=== PATIENT | male | born 1995 | race Caucasian/White ===

== ENCOUNTER 2020-07-13 13:28 | Emergency (ER) | payer SELFPAY ==
--- NOTE | 2020-07-13 13:34 | EDM.PDOC ---
ED HPI GENERAL MEDICAL PROBLEM - General Chief Complaint: General Stated Complaint: ELEVATED HEART RATE,TROUBLE BREATHING,POSSIBLE COV Time Seen by Provider: 07/13/20 13:29 Source of Information: Reports: Patient History Limitations: Reports: No Limitations - History of Present Illness INITIAL COMMENTS - FREE TEXT/NARRATIVE: HISTORY AND PHYSICAL: History of present illness: Patient is a 25-year-old male who presents to the emergency room with complaints of shortness of breath, cough and tachycardia. On 06/27/2020 he was diagnosed with COVID-19 and states he progressively started feeling better after 1 week. He recently has been off of quarantine and over the past 3 to 4 days states his symptoms are returning. When he is engaging in physical activity he feels like "my heart rate is [place] getting". He is concerned as his cough is returning and he does have some mild shortness of breath when active. Patient denies any fever, chills, headache, change in vision, syncope or near syncope. Denies any chest pain, back pain, abdominal pain, nausea, vomiting, diarrhea, constipation or dysuria. Has not noted any blood in urine or stool. Patient has been eating and drinking appropriately. Review of systems: As per history of present illness and below otherwise all systems reviewed and negative. Past medical history: As per history of present illness and as reviewed below otherwise noncontributory. Surgical history: As per history of present illness and as reviewed below otherwise noncontributory. Social history: See social history for further information Family history: As per history of present illness and as reviewed below otherwise noncontributory. Physical exam: General: Well developed and well nourished. Alert and orientated x 3. Nontoxic in appearance and in no acute distress. Vital signs are stable and have been reviewed by me. Nursing notes were reviewed. HEENT: Atraumatic, normocephalic, pupils equal and reactive bilaterally, nega tive for conjunctival pallor or scleral icterus, mucous membranes moist, TMs normal bilaterally, throat clear, neck supple, nontender, trachea midline. No drooling or trismus noted. No meningeal signs. No hot potato voice noted. Lungs: Clear to auscultation, breath sounds equal bilaterally, chest nontender. Normal work of breathing, no accessory muscles used. Dry nonproductive frequent cough noted. Heart: S1S2, regular rate and rhythm without overt murmur Abdomen: Soft, nondistended, nontender. Negative for masses or hepatosplenomegaly. Negative for costovertebral tenderness. Skin: Intact, warm, dry. No lesions or rashes noted. Hematologic: No petechiae or purpra. Mucosa appropriate color and normal nail bed color and refill. Extremities: Atraumatic, moves all extremities per self without difficulty or deficits, negative for cords or calf pain. Neurovascular unremarkable. Neuro: Awake, alert, oriented. Cranial nerves II through XII unremarkable. Cerebellum unremarkable. Motor and sensory unremarkable throughout. Exam nonfocal. Psychiatric: Mood and affect are appropriate. Normal thought process. Answering questions appropriately. Notes: Does have a frequent harsh nonproductive cough that is noted in the emergency room. His lab work is unremarkable. Chest x-ray shows no significant findings for today. The intermittent cough for the past 2 weeks I will treat with a Z- Reinaldo. His vitals have been stable while here. I have talked with the patient about today's findings, in addition to providing specific details for plan of care. Reassessment at the time of disposition demonstrates that the patient is in no acute distress. The patient is stable for discharge, counseling was provided and we discussed in great detail signs and symptoms that would prompt them to return to the Emergency Department. Medication, follow up and supportive care measures were reviewed and discussed. Voices understanding and is agreeable to plan of care. Denies any further questions or concerns at this time. Diagnostics: CBC, CMP, CXR Therapeutics: None Prescription: Zpak, Phenergan with Cod. (#4oz) Impression: COVID 19 Plan: 1. Your diagnostics, vital signs and oxygen saturation are well enough that you were able to monitor your symptoms at home. Continue to monitor for trouble breathing, new confusion or inability to arouse, bluish lips or face or any of the other symptoms we discussed -if this occurs please return to the emergency room. 2. Since you are still symptomatic I would like you to quarantine for another 5 days. Inform any persons that you have been in contact with since you started becoming symptomatic that you have tested positive; they should be made aware and take the appropriate steps as needed. 3. Supportive care measures such as increasing your fluids and [id number] medications for symptoms. You can take NyQuil during the evening to help get a restful night sleep. 4. You may alternate Tylenol and ibuprofen as needed for pain and fever management. 5. The [facility] Hotline phone number , They are open Tuesday - Tuesday 7am - 7pm. Follow up with your primary care provider for re-evaluation and re-testing after the 2 week quarantine and discuss when you should be seen. Definitive disposition and diagnosis as appropriate pending reevaluation and review of above. Generalized Pain Score (Numeric/FACES): 7 - Related Data Allergies Allergy/AdvReac Type Severity Reaction Status Date / Time No Known Allergies Allergy Verified 07/13/20 13:31 Home Meds: Home Meds . [No Known Home Meds] 07/13/20 [History] ED ROS GENERAL - Review of Systems Review Of Systems: Comprehensive ROS is negative, except as noted in HPI. ED EXAM, GENERAL - Physical Exam Exam: See Below (See dictation) Course - Vital Signs Last Recorded V/S: Last Vital Signs Temp 95.0 F L 07/13/20 13:32 Pulse 95 07/13/20 13:32 Resp 20 07/13/20 13:32 BP Pulse Ox 96 07/13/20 13:32 - Orders/Labs/Meds Labs: Laboratory Tests 07/13/20 07/13/20 Range/Units 14:17 14:17 WBC 9.57 (4.0-11.0) K/uL RBC 5.08 (4.50-5.90) M/uL Hgb 15.1 (13.0-17.0) g/dL Hct 45.8 (38.0-50.0) % MCV 90.2 (80.0-98.0) fL MCH 29.7 (27.0-32.0) pg MCHC 33.0 (31.0-37.0) g/dL RDW Std Deviation 44.2 (28.0-62.0) fl RDW Coeff of Rupal 14 (11.0-15.0) % Plt Count 190 (150-400) K/uL MPV 13.60 H (7.40-12.00) fL Neut % (Auto) 53.5 (48.0-80.0) % Lymph % (Auto) 36.7 (16.0-40.0) % [place] % (Auto) 7.9 (0.0-15.0) % Eos % (Auto) 1.7 (0.0-7.0) % Baso % (Auto) 0.2 (0.0-1.5) % Neut # (Auto) 5.1 (1.4-5.7) K/uL Lymph # (Auto) 3.5 H (0.6-2.4) K/uL [place] # (Auto) 0.8 (0.0-0.8) K/uL Eos # (Auto) 0.2 (0.0-0.7) K/uL Baso # (Auto) 0.0 (0.0-0.1) K/uL Nucleated RBC % 0.0 /100WBC Nucleated RBCs # 0 K/uL Sodium 142 (136-148) mmol/L Potassium 4.0 (3.5-5.1) mmol/L Chloride 104 (98-107) mmol/L Carbon Dioxide 28.9 (21.0-32.0) mmol/L BUN 14 (7.0-18.0) mg/dL Creatinine 1.2 (0.8-1.3) mg/dL Est Cr Clr Drug Dosing 99.35 mL/min Estimated GFR (MDRD) > 60.0 ml/min Glucose 193 H (74-106) mg/dL Calcium 8.3 L (8.5-10.1) mg/dL Total Bilirubin 0.8 (0.2-1.0) mg/dL AST 66 H (15-37) IU/L ALT 137 H (14-63) IU/L Alkaline Phosphatase 105 (46-116) U/L Total Protein 7.0 (6.4-8.2) g/dL Albumin 3.4 (3.4-5.0) g/dL Globulin 3.6 (2.6-4.0) g/dL Albumin/Globulin Ratio 0.9 (0.9-1.6) Departure - Departure Time of Disposition: 14:56 Disposition: Home, Self-Care 01 Clinical Impression: COVID-19 - Discharge Information Instructions: COVID-19 Forms: ED Department Discharge Additional Instructions: The following information is given to patients seen in the emergency department who are being discharged to home. This information is to outline your options for follow-up care. We provide all patients seen in our emergency department with a follow-up referral. The need for follow-up, as well as the timing and circumstances, are variable depending upon the specifics of your emergency department visit. If you don't have a primary care physician on staff, we will provide you with a referral. We always advise you to contact your personal physician following an emergency department visit to inform them of the circumstance of the visit and for follow-up with them and/or the need for any referrals to a consulting specialist. The emergency department will also refer you to a specialist when appropriate. This referral assures that you have the opportunity for follow-up care with a specialist. All of these measure are taken in an effort to provide you with optimal care, which includes your follow-up. Under all circumstances we always encourage you to contact your private physician who remains a resource for coordinating your care. When calling for follow-up care, please make the office aware that this follow-up is from your recent emergency room visit. If for any reason you are refused follow-up, please contact the [facility] Emergency Department at and asked to speak to the emergency department charge nurse. [facility] [address] [place] [address] [address] Thank you for choosing the [facility] emergency department in [place] for your medical needs today. It was a pleasure caring for you. Today you were seen in the emergency department for cough and COVID sequela. 1. Your diagnostics, vital signs and oxygen saturation are well enough that you were able to monitor your symptoms at home. Continue to monitor for trouble breathing, new confusion or inability to arouse, bluish lips or face or any of the other symptoms we discussed -if this occurs please return to the emergency room. 2. Since you are still symptomatic I would like you to quarantine for another 3 days. Inform any persons that you have been in contact with since you started becoming symptomatic that you have tested positive; they should be made aware and take the appropriate steps as needed. 3. Supportive care measures such as increasing your fluids and bvyw-ndw-romtwab medications for symptoms. You can take NyQuil during the evening to help get a restful night sleep. 4. You may alternate Tylenol and ibuprofen as needed for pain and fever management. 5. The [employer] Hotline phone number , They are open Tuesday - Tuesday 7am - 7pm. Follow up with your primary care provider for re-evaluation and re-testing after the 2 week quarantine and discuss when you should be seen. Sepsis Event Note (ED) - Focused Exam Vital Signs: Vital Signs Temp Pulse Resp Pulse Ox 07/13/20 13:32 95.0 F L 95 20 96
[2020-07-13 14:47] LABS: BLOOD UREA NITROGEN,BUN 14 mg/dL (7.0-18.0); CARBON DIOXIDE,CO2 28.9 mmol/L (21.0-32.0); CHLORIDE,CL 104 mmol/L (98-107); GLUCOSE RANDOM 193 mg/dL (74-106); SODIUM,NA 142 mmol/L (136-148)
--- NOTE | 2020-07-13 14:53 | CR ---
INDICATION: COVID positive. TECHNIQUE: Two view chest. IMPRESSION: Heart size and vascularity appear normal. Lungs are clear. No effusions. Incidental azygos fissure. Dictated by Sergei Busby MD @ Jul 13 2020 2:51PM Signed by Dr. Sergei Busby @ Jul 13 2020 2:52PM
== END 2020-07-13 14:15 | disposition home or self-care (01) ==
LOC: MW.ED 13:28
DX: U07.1 COVID-19 (principal)
CPT/HCPCS: 36415; 71046; 71046-26; 80053; 85025; 99283; 99285-25

== ENCOUNTER 2021-04-03 15:43 | Emergency (ER) | payer SELFPAY ==
[2021-04-03] MEDS ORDERED: traMADol 50 MG Tab PO ONE (16:16)
[2021-04-03] MEDS ORDERED: Orphenadrine 60 MG/2 ML Inj IM ONE (16:16)
--- NOTE | 2021-04-03 16:29 | EDM.PDOC ---
ED HPI GENERAL MEDICAL PROBLEM - General Chief Complaint: Back Pain or Injury Stated Complaint: MID-LOWER BACK PAIN Time Seen by Provider: 04/03/21 15:52 Source of Information: Reports: Patient History Limitations: Reports: No Limitations - History of Present Illness INITIAL COMMENTS - FREE TEXT/NARRATIVE: HISTORY AND PHYSICAL: History of present illness: The patient is a 26-year-old male who presents with complaints of upper left back pain after fall on Tuesday. The patient states that he was seen and treated with Flexeril and Diclofenac which he felt has not helped. The patient states that he is attempting to work move a certain way his pain becomes severe. Patient denies any fever, chills, headache, change in vision, syncope or near syncope. Denies any chest pain, back pain, shortness of breath or cough. Denies any abdominal pain, nausea, vomiting, diarrhea, constipation or dysuria. Has not noted any blood in urine or stool. Patient has been eating and drinking appropriately. Review of systems: As per history of present illness and below otherwise all systems reviewed and negative. Past medical history: As per history of present illness and as reviewed below otherwise noncontributory. Surgical history: As per history of present illness and as reviewed below otherwise noncontributory. Social history: See social history for further information Family history: As per history of present illness and as reviewed below otherwise noncontributory. Physical exam: General: Well developed and well nourished. Alert and orientated x 3. Nontoxic in appearance and in no acute distress. Vital signs are stable and have been reviewed by me. Nursing notes were reviewed. HEENT: Atraumatic, normocephalic, pupils equal and reactive bilaterally, negative for conjunctival pallor or scleral icterus, mucous membranes moist, TMs normal bilaterally, throat clear, neck supple, nontender, trachea midline. No drooling or trismus noted. No meningeal signs. No hot potato voice noted. Lungs: Clear to auscultation bilaterally. No wheezes, rales, or rhonchi. Chest nontender. Normal work of breathing, no accessory muscles used. Heart: S1S2, regular rate and rhythm without overt murmur, gallops, or rubs. No JVD. No peripheral edema Abdomen: Soft, nondistended, nontender. Normoactive bowel sounds. Negative for masses or costovertebral tenderness. Skin: Intact, warm, dry. No lesions or rashes noted. Back. Tenderness left upper back. Good flexibility. Negative leg raise. Hematologic: No petechiae or purpra. Mucosa appropriate color and normal nail bed color and refill. Extremities: Atraumatic, moves all extremities per self without difficulty or deficits, negative for cords or calf pain. Neurovascular unremarkable. Neuro: Awake, alert, oriented. Cranial nerves II through XII unremarkable. Cerebellum unremarkable. Motor and sensory unremarkable throughout. Exam nonfocal. Psychiatric: Mood and affect are appropriate. Normal thought process. Answering questions appropriately. Notes: *This patient was seen and evaluated during the 2019 SARS-CoV-2 novel coronavirus pandemic period. Community viral transmission is ongoing at time of this encounter and the emergency department is operating under pandemic response procedures. As stated above the patient is a 26-year-old male who presents to the emergency room with complaints of upper left back pain after falling on Tuesday. Patient states that the pain started mid back for which he was treated with Flexeril and diclofenac, which he states does not help. Patient states that his boss wants him to work and the patient states that he is in so much pain he is unable to work. The patient's exam is benign and that he can move all his extremities without difficulty. He has good flexibility and mobility. He does not have any tingling or numbness in any extremities. He has mild tenderness when palpating his back in the left upper area. I will obtain a rib x-ray to ensure there is no fracture, treat him with Norflex and oral tramadol. XRay Chest Left RIBS IMPRESSION: No acute cardiopulmonary abnormality. No displaced rib fracture is appreciated. If pain and clinical symptoms persist, subtle, non-displaced injuries are not entirely excluded. The patient states his pain is much better after being treated. I will prescribe Norflex 100 mg p.o. twice daily for 10 days. I educated the patient that he needed to follow-up with a primary care and have possible physical therapy for his back pain. The patient is agreeable with this plan. I have talked with the patient about today's findings, in addition to providing specific details for plan of care. Reassessment at the time of disposition demonstrates that the patient is in no acute distress. The patient is stable for discharge, counseling was provided and we discussed in great detail signs and symptoms that would prompt them to return to the Emergency Department. Medication, follow up and supportive care measures were reviewed and discussed. Voices understanding and is agreeable to plan of care. Denies any further questions or concerns at this time. Diagnostics: Left rib x-ray Therapeutics: Norflex 60mg, Tramadol 50mg Prescription: Norflex 100mg po BID for 10 days Impression: Contusion Plan: 1. You were evaluated today on an emergent basis. Your complaints of left upper back pain was evaluated with examination and a x-ray. Your x-ray was negative for any rib fracture. Your pain is most likely coming from the fall or contusion from your back. I treated your back pain with Norflex 60 mg IM and tramadol 50 mg orally. I have prescribed you Norflex 100 mg by mouth twice daily. 2. You can alternate Tylenol and ibuprofen as needed for pain and fever management. 3. We encourage you to follow up with your primary care provider and/or recommended specialist in the next few days for re-evaluation and further care/management. 4. If your symptoms should worsen, new symptoms develop or any of the signs and symptoms we discussed should arise please return to the emergency room or call 911 (if needed). Definitive disposition and diagnosis as appropriate pending reevaluation and review of above. Back Pain Score (Numeric/FACES): 8 - Related Data Allergies Allergy/AdvReac Type Severity Reaction Status Date / Time No Known Allergies Allergy Verified 04/03/21 15:57 Home Meds: Home Meds Cyclobenzaprine [Flexeril] 10 mg PO ASDIRECTED 04/03/21 [History] Diclofenac Submicronized [Diclofenac] 50 mg PO ASDIRECTED 04/03/21 [History] Orphenadrine [Norflex] 100 mg PO BID 10 Days #20 tab 04/03/21 [Rx] Past Medical History - Past Health History Medical/Surgical History: Denies Medical/Surgical History Psychiatric History: Reports: ADHD Dermatologic History: Reports: Psoriasis - Infectious Disease History Infectious Disease History: Reports: None Social & Family History - Family History Cardiac: Reports: [place] Endocrine/Metabolic: Reports: Diabetes, Type I, Diabetes, type II - Tobacco Use Tobacco Use Status *Q: Never Tobacco User - Caffeine Use Caffeine Use: Reports: None - Recreational Drug Use Recreational Drug Use: No ED ROS GENERAL - Review of Systems Review Of Systems: Comprehensive ROS is negative, except as noted in HPI. ED EXAM,LOWER BACK PAIN/INJURY - Physical Exam Exam: See Below (See dictation) Course - Vital Signs Last Recorded V/S: Last Vital Signs Temp 97 F 04/03/21 15:58 Pulse 100 04/03/21 18:10 Resp 16 04/03/21 18:10 BP 133/76 04/03/21 15:58 Pulse Ox 96 04/03/21 18:10 - Orders/Labs/Meds Meds: Medications Discontinued Medications Generic Name Dose Route Start Last Admin Trade Name Paolo PRN Reason Stop Dose Admin Orphenadrine Citrate 60 mg 04/03/21 16:16 04/03/21 16:25 Orphenadrine 60 Mg/2 Ml Inj IM 04/03/21 16:17 60 mg ONETIME ONE Administration Tramadol HCl 50 mg 04/03/21 16:16 04/03/21 16:24 Tramadol 50 Mg Tab PO 04/03/21 16:17 50 mg ONETIME ONE Administration Departure - Departure Time of Disposition: 18:03 Disposition: Home, Self-Care 01 Condition: Good Clinical Impression: Contusion Qualifiers: Encounter type: initial encounter Contusion area: thoracic wall Front or back of thoracic wall: back Thoracic wall location detail: left Qualified Code(s): S20.222A - Contusion of left back wall of thorax, initial encounter - Discharge Information *PRESCRIPTION DRUG MONITORING PROGRAM REVIEWED*: Not Applicable *COPY OF PRESCRIPTION DRUG MONITORING REPORT IN PATIENT GAYATHRI: Not Applicable Prescriptions: Orphenadrine [Norflex] 100 mg PO BID 10 Days #20 tab Instructions: Contusion, [id number] Referrals: PCP,None [Primary Care Provider] - Forms: ED Department Discharge Additional Instructions: The following information is given to patients seen in the emergency department who are being discharged to home. This information is to outline your options for follow-up care. We provide all patients seen in our emergency department with a follow-up referral. The need for follow-up, as well as the timing and circumstances, are variable depending upon the specifics of your emergency department visit. If you don't have a primary care physician on staff, we will provide you with a referral. We always advise you to contact your personal physician following an emergency department visit to inform them of the circumstance of the visit and for follow-up with them and/or the need for any referrals to a consulting specialist. The emergency department will also refer you to a specialist when appropriate. This referral assures that you have the opportunity for follow-up care with a specialist. All of these measure are taken in an effort to provide you with optimal care, which includes your follow-up. Under all circumstances we always encourage you to contact your private physician who remains a resource for coordinating your care. When calling for follow-up care, please make the office aware that this follow-up is from your recent emergency room visit. If for any reason you are refused follow-up, please contact the [facility] Emergency Department at and asked to speak to the emergency department charge nurse. [facility] - Primary Care [address] [place] [id number] [facility] [address] [place] [id number] Plan: 1. You were evaluated today on an emergent basis. Your complaints of left upper back pain was evaluated with examination and a x-ray. Your x-ray was negative for any rib fracture. Your pain is most likely coming from the fall or contusion from your back. I treated your back pain with Norflex 60 mg IM and tramadol 50 mg orally. I have prescribed you Norflex 100 mg by mouth twice daily. 2. You can alternate Tylenol and ibuprofen as needed for pain and fever management. 3. We encourage you to follow up with your primary care provider and/or recommended specialist in the next few days for re-evaluation and further care/management. 4. If your symptoms should worsen, new symptoms develop or any of the signs and symptoms we discussed should arise please return to the emergency room or call 911 (if needed). Sepsis Event Note (ED) - Evaluation Sepsis Screening Result: No Definite Risk - Focused Exam Vital Signs: Vital Signs Temp Pulse Resp BP Pulse Ox 04/03/21 18:10 100 16 96 04/03/21 15:58 97 F 118 H 16 133/76 18 L
--- NOTE | 2021-04-03 17:34 | CR ---
INDICATION: Fall 4 days ago now with increasing Pain TECHNIQUE: AP and Oblique views left chest COMPARISON: None available. FINDINGS: There is no dense consolidation, effusion, or pneumothorax. The cardiomediastinal silhouette is within normal limits. There is no evidence of displaced rib fracture. The bony thorax is otherwise intact. IMPRESSION: No acute cardiopulmonary abnormality. No displaced rib fracture is appreciated. If pain and clinical symptoms persist, subtle, non-displaced injuries are not entirely excluded. Dictated by Blaise Sainz MD @ 04/03/2021 5:33:[address] Blaise Sainz @ Apr 03 2021 5:33PM
== END 2021-04-03 18:11 | disposition home or self-care (01) ==
LOC: EDBD 15:43 → MW.ED 15:43
DX: S20.222A Contusion of left back wall of thorax, initial encounter (principal); W18.39XA Other fall on same level, initial encounter
CPT/HCPCS: 71100; 96372; 99283; A9270; J2360

== ENCOUNTER 2021-11-29 19:03 | Emergency (ER) | payer SELFPAY ==
[2021-11-29 19:53] LABS: BLOOD UREA NITROGEN,BUN 14 mg/dL (7.0-18.0); CARBON DIOXIDE,CO2 24.6 mmol/L (21.0-32.0); CHLORIDE,CL 101 mmol/L (98-107); GLUCOSE RANDOM 300 mg/dL (74-106); POTASSIUM,K 4.5 mmol/L (3.5-5.1); SODIUM,NA 136 mmol/L (136-148)
== END 2021-11-29 20:17 | disposition home or self-care (01) ==
LOC: MW.ED 19:03
DX: K62.5 Hemorrhage of anus and rectum (principal); R74.01 Elevation of levels of liver transaminase levels; R73.9 Hyperglycemia, unspecified
CPT/HCPCS: 36415; 80053; 85025; 99283; 99284